=== PATIENT | male | born 1990 | race Caucasian/White ===

== ENCOUNTER 2017-02-28 18:48 | Emergency (ER) | payer BC ==
[~2017-02-28] VITALS: Ht 182.9 cm; Wt 81.6 kg
[~2017-02-28 18:48] MED LIST: OMEP-125 PO; ONDA4TAB PO; SUCR1TAB85 PO
--- NOTE | 2017-02-28 18:51 | ER Report ---
History and Physical Time Seen By MD: 18:49 HPI/ROS CHIEF COMPLAINT: Near syncope HISTORY OF PRESENT ILLNESS: 26-year-old male presents ambulatory to the ER after having a near-syncopal episode at a bar on a barstool. He fell but he was assisted to the ground by 2 friends. He landed on his left shoulder. He thought he may have dislocated or injured his shoulder. He also struck the left side of his head. He is recovering from a viral URI symptom. He states he had a proximally 4 drinks 2 shots and 2 beers. He states he feels a lot better now. His history is significant for endoscopy in April 2016 where they found some duodenitis. He had some notable hematemesis. At that time. His H& H was stable. He was on a proton pump inhibitor for several months afterwards. Patient notes no black stools at this time. His vital signs are stable. He is reluctant to undergo any diagnostic testing. REVIEW OF SYSTEMS: Respiratory: No cough, no dyspnea. Cardiovascular: No chest pain, no palpitations. Gastrointestinal: No vomiting, no abdominal pain. Musculoskeletal: No back pain. Allergies: Coded Allergies: No Known Drug Allergies (Unverified , 02/28/17) Home Meds Discontinued Reported Medications Omeprazole (OMEPRAZOLE) 20 Mg Capsule.dr, 2 CAP PO QDAY, CAP 04/08/16 Discontinued Scripts Ondansetron (ZOFRAN ODT) 4 Mg Tab.rapdis, 4 MG PO Q6H Y for NAUSEA/VOMITING, # 20 TAB.LUTHER 0 Refills Prov:ANA URRUTIA MD 03/25/16 Sucralfate (CARAFATE) 1 Gm Tablet, 1 GM PO QID, #120 TAB 0 Refills Prov:ANA URRUTIA MD 03/25/16 Reviewed Nurses Notes: Yes Old Medical Records Reviewed: Yes Hx Smoking: Yes (SMOKED 1/4 PPD FOR 2 TO 3 YEARS) Smoking Status: Former Smoker Exposure to Second Hand Smoke?: Yes Hx Substance Use Disorder: Yes (MARIJUANA) Hx Alcohol Use: Yes Constitutional Vital Sign - Last 24 Hours 02/28/17 02/28/17 18:58 19:17 Temp 97.7 Pulse 83 73 Resp 16 14 B/P (MAP) 123/83 114/63 (80) Pulse Ox 97 95 O2 Delivery Room Air Room Air Physical Exam General Appearance: The patient is alert, has no immediate need for airway protection and no current signs of toxicity. Palpation of the head and neck reveal no tenderness or trauma. Patient's alert and oriented 3 HEENT: Pupils equal and round no injection. TMs normal, oropharynx without dental trauma, mucous. Membranes are moist Respiratory: Chest is non tender, lungs are clear to auscultation. No chest wall tenderness Cardiac: regular rate and rhythm Gastrointestinal: Abdomen is soft and non tender, no masses, bowel sounds normal. Musculoskeletal: Neck: Neck is supple and non tender. No tenderness in the midline with aggressive palpation Extremities have full range of motion and are non tender. No evidence of trauma Skin: No rashes or lesions. DIFFERENTIAL DIAGNOSIS: After history and physical exam differential diagnosis was considered forsyncope including but not limited to vasovagal syncope, arrhythmia, dehydration, and blood loss. Medical Decision Making ED Course/Re-evaluation ED Course Patient was minute to an examination room. H&P was done. The differential diagnoses was considered. On clinical examination with aggressive palpation there are no significant traumatic injuries except the left shoulder is tender, but chemistries full range of motion. Patient, when he had a syncopal episode, fell onto his left side striking his shoulder and his head. He did this after consuming significant alcohol well recovering from a cold. Patient denies chest pain, shortness of breath, fever, chills or nausea and vomiting. Patient' s reassured that his injuries are likely benign. His syncope is easily explained by multiple etiologies, alcohol intoxication, vasovagal state from viral syndrome. Patient was offered evaluation with IV fluid hydration, documentation of an H&H, alcohol level and electrolytes. Patient was also given the option a head CT, however, think the findings will likely be negative. There is a significant head trauma. He was assisted to the ground by family members. Patient's cautioned return to the ER for any worsening. Decision to Disposition Date: Feb 28, 2017 Decision to Disposition Time: 19:03 Depart Departure Latest Vital Signs Vital Signs Date Time Temp Pulse Resp B/P (MAP) Pulse Ox O2 Delivery O2 Flow Rate FiO2 02/28/17 19:17 73 14 114/63 (80) 95 Room Air 02/28/17 18:58 97.7 Impression: Primary Impression: Syncope Additional Impressions: Alcohol intoxication Viral URI Head injury Contusion of left shoulder Condition: Improved Disposition: HOME OR SELF-CARE New Scripts No Active Prescriptions or Reported Meds Patient Instructions: Contusion in Adults (ED), Head Injury (ED), Near Syncope (ED) Additional Instructions: Drink plenty of fluids Take ibuprofen 200 mg 3 tablets 3 times a day with food Follow-up with your primary care if unimproved in 2-3 days Return to the ER for any worsening Problem Qualifiers Primary Impression: Syncope Syncope type: vasovagal syncope Qualified Codes: R55 - Syncope and collapse Additional Impressions: Alcohol intoxication Complication of substance-induced condition: uncomplicated Qualified Codes: F10.920 - Alcohol use, unspecified with intoxication, uncomplicated Head injury Encounter type: initial encounter Qualified Codes: S09.90XA - Unspecified injury of head, initial encounter Contusion of left shoulder Encounter type: initial encounter Qualified Codes: S40.012A - Contusion of left shoulder, initial encounter DEE CONTRERAS DO Feb 28, 2017 18:51
[2017-02-28 19:17] VITALS: BP 114/63
== END 2017-02-28 19:17 | disposition home or self-care (01) ==
LOC: ER 19:09
DX: R55 Syncope and collapse (principal); F10.920 Alcohol use, unspecified with intoxication, uncomplicated; J06.9 Acute upper respiratory infection, unspecified; S09.90XA Unspecified injury of head, initial encounter; S40.012A Contusion of left shoulder, initial encounter; W07.XXXA Fall from chair, initial encounter
CPT/HCPCS: 99281